=== PATIENT | female | born 1985 | race Caucasian/White ===

== ENCOUNTER 2020-04-29 23:18 | Emergency (ER) | payer OTHER ==
[~2020-04-29] VITALS: Ht 162.6 cm; Wt 77.1 kg
[2020-04-29 23:25] VITALS: BP 123/79
--- NOTE | 2020-04-29 23:30 | NUR ---
35 Y/O FEMALE BIBA FOR BUG BITE TO LEFT MCELROY WITH EDEMA/REDNESS/PAIN 06/02 TO SITE; PMH:EZEKIEL/ANXIETY/MAJOR DEPRESSION ALLERGIES: PT STATES ALL "CILLINS"/ BACTRIM/SEPTRA/BUSPAR/TORADOL/HALDOL
[2020-04-29 23:36] VITALS: BP 123/79
--- NOTE | 2020-04-30 01:09 | NUR ---
Patient discharged with v/s stable. Written and verbal after care instructions given and explained. Patient alert, oriented and verbalized understanding of instructions. Ambulatory with steady gait. All questions addressed prior to discharge. ID band removed. Patient advised to follow up with PMD. Rx of clindamycin given. Patient educated on indication of medication including possible reaction and side effects. Opportunity to ask questions provided and answered.
== END 2020-04-30 01:10 | disposition home or self-care (01) ==
LOC: MED 23:18
DX: L03.116 Cellulitis of left lower limb (principal); L03.115 Cellulitis of right lower limb
CPT/HCPCS: 99283

== ENCOUNTER 2020-12-04 16:20 | Emergency (ER) | payer OTHER ==
[~2020-12-04] VITALS: Ht 165.1 cm; Wt 83.9 kg
[2020-12-04 16:21] VITALS: BP 120/76
--- NOTE | 2020-12-04 16:35 | NUR ---
35 Y/O F C/O BILATERAL LOWER LEG SWELLING/REDNESS SINCE 11/22/20 PT RECEIVED CLINDAMYCIN FOR CELLULITIS FROM URGENT CARE ON 11/27/20, PATIENT WAS INSTRUCTED TO COME TO ER IF SWELLING GOT WORSE, PATIENT STATES THAT BILAT LOWER EXTREMITIES ARE CAUSING 9/10 PAIN DURING AMBULATION. BLE ARE SWOLLEN WITH REDNESS AND ARE WARM TO TOUCH. SMALL BLISTER NOTED BETWEEN 5TH AND 4TH TOE ON RIGHT FOOT, SORE NOTED ON LOWER LEFT LEG WITH BANDAGE COVERING. DENIES ANY N/V/D OR FLU LIKE SYMPTOMS PMH: HEP C
--- NOTE | 2020-12-04 17:12 | NUR ---
PATIENT AMBULATED TO BED 07 WITH STEADY GAIT
[2020-12-04 18:47] LABS: BASOPHILS % (AUTO) 0.2 % (0.0-2.0); EOSINOPHILS # (AUTO) 0.6 K/uL (0-0.4); EOSINOPHILS % (AUTO) 6.7 % (0.0-4.0); HEMATOCRIT 29.8 % (36-48); HEMOGLOBIN 10.1 g/dL (12.0-16.0); LYMPHOCYTES % (AUTO) 35.7 % (20.5-51.1); MEAN CORPUSCULAR HEMOGLOBIN 30 pg (27-31); MEAN CORPUSCULAR HGB CONC 34 g/dL (33-37); MONOCYTES # (AUTO) 0.7 K/uL (0.8-1.0); MONOCYTES % (AUTO) 8.2 % (1.7-9.3); NEUTROPHILS # (AUTO) 4.1 K/uL (1.8-7.7); NEUTROPHILS % (AUTO) 49.2 % (42.2-75.2); PLATELET COUNT (AUTO) 289 K/uL (140-450); RED BLOOD CELL COUNT(AUTO) 3.35 MIL/uL (4.20-5.40); RED CELL DISTRIBUTION WIDTH 13.6 % (11.6-13.7); WHITE BLOOD COUNT (AUTO) 8.4 K/uL (4.8-10.8)
[2020-12-04 19:00] LABS: ALBUMIN 2.9 g/dL (3.4-5.0); ANION GAP 10.7 (8-16); CARBON DIOXIDE 30.3 mmol/L (21-32); CREATININE 0.8 mg/dL (0.6-1.3); TOTAL BILIRUBIN 0.2 mg/dL (0.0-1.0)
[2020-12-04 19:05] LABS: APPEARANCE,URINE CLEAR (CLEAR); BILIRUBIN,URINE NEGATIVE (NEGATIVE); BLOOD, URINE TRACE-I (NEGATIVE); COLOR,URINE YELLOW (YELLOW); LEUKOCYTE ESTERASE ,URINE NEGATIVE (NEGATIVE); NITRITE, URINE NEGATIVE (NEGATIVE); UGLUCOSE NEGATIVE (NEGATIVE)
--- NOTE | 2020-12-04 19:09 | NUR ---
ENDORSEMENT GIVEN TO DREAD BERMAN FOR CONTINUATION OF CARE
[2020-12-04 19:20] LABS: BARBITURATE, URINE NEGATIVE ng/ml (NEG <=200); BENZODIAZEPINE, URINE POSITIVE ng/mL (NEG <=200); CANNABINOID, URINE NEGATIVE ng/mL (NEG <=50); COCAINE, URINE NEGATIVE ng/mL (NEG <=300); OPIATE, URINE POSITIVE ng/mL (NEG <=2000); PHENCYCLIDINE SCREEN,URINE NEGATIVE ng/mL (NEG <=25)
--- NOTE | 2020-12-04 19:30 | NUR ---
US IN PROGRESS
--- NOTE | 2020-12-04 22:45 | NUR ---
PT WAS TO BE ADMITTED BUT NOW REFUSES. TO BE DISCHARGED. DR. REID SPOKE WITH PT.
[2020-12-04 23:04] VITALS: BP 120/76
--- NOTE | 2020-12-04 23:04 | NUR ---
Patient discharged with v/s stable. Written and verbal after care instructions given and explained. Patient verbalized understanding. Ambulatory with steady gait. All questions addressed prior to discharge. Advised to follow up with PMD.
== END 2020-12-04 23:04 | disposition home or self-care (01) ==
LOC: MED 16:20
DX: L03.115 Cellulitis of right lower limb (principal); L03.116 Cellulitis of left lower limb; E87.6 Hypokalemia; F12.10 Cannabis abuse, uncomplicated
CPT/HCPCS: 36415; 71045; 80053; 80305; 81003; 83735; 83880; 84484; 85025; 87040; 93005; 93970; 99285